=== PATIENT | female | born 1965 | race Caucasian/White ===

== ENCOUNTER 2016-07-25 12:07 | Observation (INO) | payer OTHER ==
[~2016-07-25] VITALS: Ht 172.7 cm; Wt 81.6 kg
[2016-07-25] MEDS ORDERED: NITROGLYCERIN SUBLINGUAL 0.4 MG BOTTLE OF 25. SL PRN (12:45)
[2016-07-25 13:01] LABS: BASO # 0.1 x10^3/uL (0.0-0.2); BASO % 1 % (0-3); EOS % 1 % (0-3); HEMATOCRIT 40.2 % (36.0-47.0); HEMOGLOBIN 13.7 g/dL (12.0-15.5); LYMPH # 1.7 x10^3/uL (1.0-4.8); LYMPH % 27 % (24-48); MEAN CORPUSCULAR HEMOGLOBIN 30 pg (25-35); MEAN CORPUSCULAR HGB CONC 34 g/dL (31-37); MEAN CORPUSCULAR VOLUME 89 fL (79-100); MONO % 7 % (0-9); NEUT % 65 % (31-73); PLATELET COUNT 211 x10^3/uL (140-400); RED BLOOD COUNT 4.52 x10^6/uL (3.50-5.40); RED CELL DISTRIBUTION WIDTH 14.1 % (11.5-14.5); WHITE BLOOD COUNT 6.3 x10^3/uL (4.0-11.0)
[2016-07-25] MEDS: ASPIRIN 81 MG TAB.CHEW PO ONE (13:03)
[2016-07-25] MEDS: IV NORMAL SALINE 1000ML BAG 1,000 ML IV SCH (13:04)
[2016-07-25 13:08] LABS: PROTHROMBIN TIME PATIENT 12.9 SEC (11.7-14.0)
--- NOTE | 2016-07-25 13:11 | EKG ---
[facility] [address] [place] [address] Test Date: 2016-07-25 Test Time: 12:13:19 Pat Name: STEVEN HILLIARD Department: Room: Gender: F Top Icer: : 1965 Requested By: ANICETO SMITH Order Number: [id number] Reading MD: Emy Morales Measurements Intervals [place] Rate: 76 P: 71 PA: 146 QRS: 64 QRSD: 86 T: 41 QT: 344 QTc: 391 Interpretive Statements SINUS RHYTHM LEFT ATRIAL ABNORMALITY ABNORMAL ECG RI6.01 No previous ECG available for comparison Electronically Signed On 07-26-2016 0:33:18 MUCKER COFFERDAM by Emy Morales
[2016-07-25 13:13] LABS: CALCIUM 9.7 mg/dL (8.5-10.1); GFR 58.9; POTASSIUM 3.9 mmol/L (3.5-5.1)
[2016-07-25 13:18] LABS: ALBUMIN 3.8 g/dL (3.4-5.0); DIRECT BILIRUBIN 0.1 mg/dL (0.0-0.2); MAGNESIUM 2.1 mg/dL (1.8-2.4); TOTAL BILIRUBIN 0.6 mg/dL (0.2-1.0); TOTAL PROTEIN 7.3 g/dL (6.4-8.2)
--- NOTE | 2016-07-25 13:19 | RAD ---
Portable chest, 07/25/2016: History: Chest pain The heart size and pulmonary vascularity are normal. No pulmonary infiltrates are seen. There is no evidence of pleural fluid. IMPRESSION: No acute cardiopulmonary abnormality is detected.
[2016-07-25 13:45] LABS: CKMB MASS < 0.5 ng/mL (0.0-3.6); CREATINE KINASE 84 U/L (26-192)
--- NOTE | 2016-07-25 13:50 | PHYS DOC ---
Past Medical History Past Medical History: No Pertinent History Past Surgical History: Tubal ligation Alcohol Use: Occasionally Drug Use: None Adult General Chief Complaint Chief Complaint: CHEST PAIN HPI HPI Patient is a 51 year old female who presents with complaint of chest pain. Patient states that she has had symptoms intermittently over the past 7 days, however she started having worsening symptoms this morning. Patient states that the pain is substernal and radiates towards the right side of her neck. Patient has had associated nausea with her symptoms. Patient currently rates her pain as 5 out of 10. Patient has not taken any medications to help with symptoms. Patient denies any significant past medical history however she does have significant history for myocardial infarction in her maternal side of the family. Review of Systems Review of Systems Constitutional: Denies fever or chills [] Eyes: Denies change in visual acuity, redness, or eye pain [] HENT: Denies nasal congestion or sore throat [] Respiratory: Denies cough or shortness of breath [] Cardiovascular: Chest pain [] GI: Nausea, denies abdominal pain vomiting, bloody stools or diarrhea [] : Denies dysuria or hematuria [] Musculoskeletal: Denies back pain or joint pain [] Integument: Denies rash or skin lesions [] Neurologic: Denies headache, focal weakness or sensory changes [] Endocrine: Denies polyuria or polydipsia [] Current Medications Current Medications Current Medications Medications (Trade) Dose Ordered Sig/[facility] Start Time Stop Time Status Last Admin Dose Admin Acetaminophen (Tylenol) 650 mg 1X ONCE 07/25/16 14:15 07/25/16 14:16 DC 07/25/16 13:55 650 MG Aspirin (Children'S Aspirin) 324 mg 1X ONCE 07/25/16 13:15 07/25/16 13:16 DC 07/25/16 13:03 324 MG Aspirin (Ecotrin) 81 mg [id number] 07/26/16 08:00 Multi-Ingredient Mouthwash/Gargle (Gi Cocktail Single Dose) 15 ml 1X ONCE 07/25/16 16:00 07/25/16 16:01 DC 07/25/16 16:05 15 ML Nitroglycerin 0.4 mg 0.4 mg PRN Q5MIN PRN 07/25/16 12:45 07/26/16 12:44 Ondansetron HCl (Zofran) 4 mg 1X ONCE 07/25/16 14:15 07/25/16 14:16 DC 07/25/16 13:56 4 MG Pantoprazole Sodium (Protonix) 40 mg DAILYAC 07/25/16 16:00 07/25/16 15:30 40 MG Sodium Chloride (Iv Sodium Chloride 0.9% 1000ml Bag) 1,000 ml @ 1,000 mls/hr Q1H 07/25/16 12:40 07/25/16 13:39 DC 07/25/16 13:04 1,000 MLS/HR Allergies Allergies Allergies Coded Allergies Type Severity Reaction Last Updated Verified No Known Drug Allergies 07/25/16 No Physical Exam Physical Exam Constitutional: Well developed, well nourished, no acute distress, non-toxic appearance. [] HENT: Normocephalic, atraumatic, bilateral external ears normal, oropharynx moist, no oral exudates, nose normal. [] Eyes: PERRLA, EOMI, conjunctiva normal, no discharge. [] Neck: Normal range of motion, no tenderness, supple, no stridor. [] Cardiovascular:Heart rate regular rhythm, no murmur [] Lungs & Thorax: Bilateral breath sounds clear to auscultation [] Abdomen: Bowel sounds normal, soft, no tenderness, no masses, no pulsatile masses. [] Skin: Warm, dry, no erythema, no rash. [] Back: No tenderness, no CVA tenderness. [] Extremities: No tenderness, no cyanosis, no clubbing, ROM intact, no edema. [] Neurologic: Alert and oriented X 3, normal motor function, normal sensory function, no focal deficits noted. [] Current Patient Data Vital Signs Vital Signs Date Time Temp Pulse Resp B/P Pulse Ox O2 Delivery O2 Flow Rate FiO2 07/25/16 16:00 70 98 Room Air 07/25/16 15:30 118/71 07/25/16 12:07 98.5 14 98.5 Lab Values Laboratory Tests Test 07/25/16 12:18 07/25/16 14:45 White Blood Count 6.3x10^3/uL (4.0-11.0) Red Blood Count 4.52x10^6/uL (3.50-5.40) Hemoglobin 13.7g/dL (12.0-15.5) Hematocrit 40.2% (36.0-47.0) Mean Corpuscular Volume 89fL (79-100) Mean Corpuscular Hemoglobin 30pg (25-35) Mean Corpuscular Hemoglobin Concent 34g/dL (31-37) Red Cell Distribution Width 14.1% (11.5-14.5) Platelet Count 211x10^3/uL (140-400) Neutrophils (%) (Auto) 65% (31-73) Lymphocytes (%) (Auto) 27% (24-48) Monocytes (%) (Auto) 7% (0-9) Eosinophils (%) (Auto) 1% (0-3) Basophils (%) (Auto) 1% (0-3) Neutrophils # (Auto) 4.1x10^3uL (1.8-7.7) Lymphocytes # (Auto) 1.7x10^3/uL (1.0-4.8) Monocytes # (Auto) 0.4x10^3/uL (0.0-1.1) Eosinophils # (Auto) 0.0x10^3/uL (0.0-0.7) Basophils # (Auto) 0.1x10^3/uL (0.0-0.2) Prothrombin Time 12.9SEC (11.7-14.0) Prothrombin Time INR 1.0 (0.8-1.1) Sodium Level 143mmol/L (136-145) Potassium Level 3.9mmol/L (3.5-5.1) Chloride Level 104mmol/L (98-107) Carbon Dioxide Level 28mmol/L (21-32) Anion Gap 11 (6-14) Blood Urea Nitrogen 22mg/dL (7-20) H Creatinine 1.0mg/dL (0.6-1.0) Estimated GFR (Cockcroft-Gault) 58.9 Glucose Level 96mg/dL (70-99) Calcium Level 9.7mg/dL (8.5-10.1) Magnesium Level 2.1mg/dL (1.8-2.4) Total Bilirubin 0.6mg/dL (0.2-1.0) Direct Bilirubin 0.1mg/dL (0.0-0.2) Aspartate Amino Transferase (AST) 13U/L (15-37) L Alanine Aminotransferase (ALT) 20U/L (14-59) Alkaline Phosphatase 75U/L (46-116) Creatine Kinase 84U/L (26-192) Creatine Kinase MB (Mass) < 0.5ng/mL (0.0-3.6) Creatine Kinase MB Relative Index % (0-4) Troponin I Quantitative < 0.017ng/mL (0.000-0.055) VX-Xzc-[id number]-Type Natriuretic Peptide 36pg/mL (0-124) Total Protein 7.3g/dL (6.4-8.2) Albumin 3.8g/dL (3.4-5.0) Lipase 158U/L (73-393) Thyroid Stimulating Hormone (TSH) 4.498uIU/mL (0.358-3.74) H Urine Collection Type Void Urine Color Yellow Urine Clarity Clear Urine pH 6.5 Urine Specific [place] 1.020 Urine Protein Negativemg/dL (NEG-TRACE) Urine Glucose (UA) Negativemg/dL (NEG) Urine Ketones (Stick) Tracemg/dL (NEG) Urine Blood Negative (NEG) Urine Nitrite Negative (NEG) Urine Bilirubin Negative (NEG) Urine Urobilinogen Dipstick 0.2mg/dL (0.2 mg/dL) Urine Leukocyte Esterase Trace (NEG) Urine RBC 0/HPF (0-2) Urine WBC 1-4/HPF (0-4) Urine Squamous Epithelial Cells Mod/LPF Urine Bacteria Few/HPF (0-FEW) Urine Mucus Marked/LPF Urine Test Negative (NEG) Laboratory Tests 07/25/16 12:18 Laboratory Tests 07/25/16 12:18 EKG EKG Interpreted by me: Heart rate 76, sinus rhythm, normal intervals, normal axis, no acute ST/T-wave abnormalities present [] Radiology/Procedures Radiology/Procedures [facility] [address] [place], [place] [id number] IMAGING REPORT Signed PATIENT: STEVEN HILLIARD ACCOUNT: [id number] : 1965 LOCATION: ER AGE: 51 SEX: F EXAM STATUS: REG ER ORD. PHYSICIAN: ANICETO SMITH MD REASON: chest pain since last night PROCEDURE: PORTABLE CHEST 1V Portable chest, 07/25/2016: History: Chest pain The heart size and pulmonary vascularity are normal. No pulmonary infiltrates are seen. There is no evidence of pleural fluid. IMPRESSION: No acute cardiopulmonary abnormality is detected. DICTATED and SIGNED BY: MARSHALL LEWIS MD DATE: 07/25/16 1316 CC: ANICETO SMITH MD; NIKOS NEAL APRN ~ [] Course & Med Decision Making Course & Med Decision Making Pertinent Labs and Imaging studies reviewed. (See chart for details) The patient's initial workup showed negative cardiac enzymes, a mildly elevated TSH, and no other remarkable findings. The patient continues to have persistent symptoms in the emergency department of chest pain at this time after treatment with aspirin and nitroglycerin. I consulted the cardiology service and patient was evaluated in the emergency department by Dr. Mcgee of cardiology. The patient will be admitted for monitoring overnight and will have an echocardiogram and stress test completed to rule out acute coronary syndrome. Patient was admitted to Dr. Farley. Dragon Disclaimer Dragon Disclaimer This electronic medical record was generated, in whole or in part, using a voice recognition dictation system. Departure Departure Impression: Primary Impression: Chest pain Additional Impressions: Elevated TSH Family history of myocardial infarction Disposition: ADMITTED INPATIENT Admitting Physician: Other Condition: STABLE Referrals: NIKOS NEAL APRN (PCP) Problem Qualifiers Primary Impression: Chest pain Chest pain type: unspecified Qualified Code: R07.9 - Chest pain, unspecified ANICETO SMITH MD Jul 25, 2016 13:50
[2016-07-25] MEDS: ACETAMINOPHEN 325 MG TABLET. PO ONE (13:55)
[2016-07-25] MEDS: ONDANSETRON PF 4 MG/2 ML VIAL. IV ONE (13:56)
--- NOTE | 2016-07-25 14:36 | PDOC2 ---
MARQUIS HERNANDEZ MUSICAL INSTRUMENT MAKER 07/25/16 1436: CARDIAC CONSULT DATE OF CONSULT Date of Consult DATE: 07/25/16 TIME: 14:23 REASON FOR CONSULT Reason for Consult: Chest pain REFERRING PHYSICIAN Referring Physician: Mikael SOURCE Source: Chart review, Patient HISTORY OF PRESENT ILLNESS HISTORY OF PRESENT ILLNESS This is a pleasant 51 yo female admitted for complains of chest pain. Reports that she has been having frequent sensation indigestion lately. Also has been having intermittent chest pressure. Yesterday evening around 6 PM she started having retrosternal pressure which was associated with nausea, jaw pain , and mild SOA. This lingered on all night but tolerable enough that she was able to go to sleep. Pealed at pain rate of 5 in 0-10 scale. She woke up today and her indigestion which worsen to more nausea remained and again was having chest pressure. She took tums and this is the only treatment she tried without resolution. She had zofran in ED which again decreased her nausea but not completely. Also lately she has been having palpitations occurring intermittently sometimes throughout the day TIW and at times she would feel dizzy. Denies any prior CAR, cardiac disease, VTE, PUD. She does not take any medications. Denies any falls, injuries, recent heavy lifting, constipation, no recent infection or chronic coughing nor respiratory infections. No routine use of NSAIDs/excessive caffeinated beverages/nor ETOH. She also has been feeling fatigued lately. PAST MEDICAL HISTORY Past Medical History Subclinical hypothyroidism treated with synthroid in the past but currently not on any replacement. No further pertinent history PAST SURGICAL HISTORY Past Surgical History: Tubal Ligation FAMILY HISTORY Family History: Coronary Artery Disease (Grandmother with SCD in her 40s), Other (AFIB mother and brother) CURRENT MEDICATIONS CURRENT MEDICATIONS Current Medications Medications (Trade) Dose Ordered Sig/Stephanie Route PRN Reason Start Time Stop Time Status Last Admin Dose Admin Aspirin 324 mg 324 mg 1X ONCE PO 07/25/16 13:15 07/25/16 13:16 DC 07/25/16 13:03 Sodium Chloride (Iv Sodium Chloride 0.9% 1000ml Bag) 1,000 ml @ 1,000 mls/hr Q1H IV 07/25/16 12:40 07/25/16 13:39 DC 07/25/16 13:04 Ondansetron HCl (Zofran) 4 mg 1X ONCE IV 07/25/16 14:15 07/25/16 14:16 DC 07/25/16 13:56 Acetaminophen (Tylenol) 650 mg 1X ONCE PO 07/25/16 14:15 07/25/16 14:16 DC 07/25/16 13:55 ALLERGIES ALLERGIES: Coded Allergies: No Known Drug Allergies (Unverified , 07/25/16) ROS Review of System 14 point ROS evaluated with pertinent positives noted per HPI PHYSICAL EXAM General: Alert, Oriented X3, Cooperative, No acute distress HEENT: Atraumatic, Mucous membr. moist/pink Lungs: Clear to auscultation, Normal air movement Heart: Regular rate, Normal S1, Normal S2, No murmurs Abdomen: Soft, No tenderness Extremities: No cyanosis, No edema Skin: No breakdown, No significant lesion Neuro: Normal speech, Sensation intact Psych/Mental Status: Mental status NL, Mood NL MUSCULOSKELETAL: Full range of motion without pain VITALS VITALS Vital Signs Date Time Temp Pulse Resp B/P Pulse Ox O2 Delivery O2 Flow Rate FiO2 07/25/16 13:30 70 115/70 95 Room Air 07/25/16 12:07 98.5 14 98.5 LABS Lab: Laboratory Tests Test 07/25/16 12:18 White Blood Count 6.3x10^3/uL (4.0-11.0) Red Blood Count 4.52x10^6/uL (3.50-5.40) Hemoglobin 13.7g/dL (12.0-15.5) Hematocrit 40.2% (36.0-47.0) Mean Corpuscular Volume 89fL (79-100) Mean Corpuscular Hemoglobin 30pg (25-35) Mean Corpuscular Hemoglobin Concent 34g/dL (31-37) Red Cell Distribution Width 14.1% (11.5-14.5) Platelet Count 211x10^3/uL (140-400) Neutrophils (%) (Auto) 65% (31-73) Lymphocytes (%) (Auto) 27% (24-48) Monocytes (%) (Auto) 7% (0-9) Eosinophils (%) (Auto) 1% (0-3) Basophils (%) (Auto) 1% (0-3) Neutrophils # (Auto) 4.1x10^3uL (1.8-7.7) Lymphocytes # (Auto) 1.7x10^3/uL (1.0-4.8) Monocytes # (Auto) 0.4x10^3/uL (0.0-1.1) Eosinophils # (Auto) 0.0x10^3/uL (0.0-0.7) Basophils # (Auto) 0.1x10^3/uL (0.0-0.2) Prothrombin Time 12.9SEC (11.7-14.0) Prothromb Time International Ratio 1.0 (0.8-1.1) Sodium Level 143mmol/L (136-145) Potassium Level 3.9mmol/L (3.5-5.1) Chloride Level 104mmol/L (98-107) Carbon Dioxide Level 28mmol/L (21-32) Anion Gap 11 (6-14) Blood Urea Nitrogen 22mg/dL (7-20) Creatinine 1.0mg/dL (0.6-1.0) Estimated GFR (Cockcroft-Gault) 58.9 Glucose Level 96mg/dL (70-99) Calcium Level 9.7mg/dL (8.5-10.1) Magnesium Level 2.1mg/dL (1.8-2.4) Total Bilirubin 0.6mg/dL (0.2-1.0) Direct Bilirubin 0.1mg/dL (0.0-0.2) Aspartate Amino Transf (AST/SGOT) 13U/L (15-37) Alanine Aminotransferase (ALT/SGPT) 20U/L (14-59) Alkaline Phosphatase 75U/L (46-116) Creatine Kinase 84U/L (26-192) Creatine Kinase MB (Mass) < 0.5ng/mL (0.0-3.6) Creatine Kinase MB Relative Index % (0-4) Troponin I Quantitative < 0.017ng/mL (0.000-0.055) WL-Mkj-J-Type Natriuretic Peptide 36pg/mL (0-124) Total Protein 7.3g/dL (6.4-8.2) Albumin 3.8g/dL (3.4-5.0) Lipase 158U/L (73-393) Thyroid Stimulating Hormone (TSH) 4.498uIU/mL (0.358-3.74) ASSESSMENT/PLAN ASSESSMENT/PLAN 1. Chest pain: with typical features. Initial troponin normal. EKG SR with mild T wave inversions to septal leads and notable for possible LAE. 2. Palpitations: occurring TIW sometimes intermittent throughout the day with associated dizziness. 3. Subclinical hypothyroidism: defer to PCP 4. Family hx of AFIB (brother and mother) and Premature SCD/PA (grandmother) Plan 1. Discussed plan with pt. TTE today, MPI tomorrow. 2. Lipid panel, continue to trend troponin 3. ECASA, PPI 4. Will consider for event monitor. Problems: DANYELLE MAURER MD 07/25/16 1606: CARDIAC CONSULT ALLERGIES ALLERGIES: Coded Allergies: No Known Drug Allergies (Unverified , 07/25/16) ASSESSMENT/PLAN ASSESSMENT/PLAN Pt. seen and examined Agree with above ROUTE DELIVERY SERVICE DRIVER note. 51 y.o F with atypical chest pain. No clear risk factors present Initial tropon is negative. On exam she has normal heart sounds +GERD symptoms. Will tentatively plan for GI cocktail now, then repeat troponin, if normal could then do outpt stress. Otherwise, plan for inpt stress tmrw. Discussed with patient. Problems: MARQUIS HERNANDEZ APRN Jul 25, 2016 14:36 DANYELLE MAURER MD Jul 25, 2016 16:06
[2016-07-25 14:58] LABS: NEG OBC UR NEG; POS OBC UR POS
[2016-07-25 14:59] LABS: BILIRUBIN,URINE NEGATIVE (NEG); GLUCOSE,URINE NEGATIVE (NEG); NITRITE,URINE NEGATIVE (NEG); PH,URINE 6.5; PROTEIN,URINE NEGATIVE (NEG-TRACE); UROBILINOGEN,URINE 0.2 mg/dL (0.2 mg/dL)
[2016-07-25 15:13] LABS: BACTERIA,URINE FEW /HPF (0-FEW); RBC,URINE 0 /HPF (0-2); SQUAMOUS EPITHELIAL CELL,UR MOD /LPF
[2016-07-25] MEDS: PANTOPRAZOLE 40 MG TABLET. PO SCH (15:30)
[2016-07-25] MEDS: LIDO:MAALOX:DONNATAL 1:1:1 15 ML SINGLE DOSE SWSW ONE (16:05)
--- NOTE | 2016-07-25 16:43 | CARD ---
APPROVED REPORT EXAM: Two-dimensional and M-mode echocardiogram with Doppler and color Doppler. Other Information Quality : Average Rhythm : NSR INDICATION Chest Pain 2D DIMENSIONS RVDd2.0 (2.9-3.5cm)Left Atrium(2D)2.6 (1.6-4.0cm) IVSd0.8 (0.7-1.1cm)Aortic Root(2D)2.7 (2.0-3.7cm) LVDd5.4 (3.9-5.9cm)LVOT Diameter2.0 (1.8-2.4cm) PWd0.8 (0.7-1.1cm)LVDs2.9 (2.5-4.0cm) FS (%) 32.2 %SV106.5 ml LVEF(%)64.1 (>50%) Aortic Valve AoV Peak Maximino.115.0cm/sAoV VTI26.2cm AO Peak GR.5.3mmHgLVOT VTI 22.30cm AO Mean GR.3mmHgAVA (VTI)2.73cm2 Mitral Valve MV E Axfmuoio55.3cm/sMV E Peak Gr.2mmHg MV DECEL [id number] A Eetjufyl65.7cm/s MV E Mean Gr.1mmHgMV YHI68sj E/A Ratio1.3MV A [id number] MVA (PHT)3.06cm2 TDI Lateral E' P. V13.12cm/sMedial E' P. V13.12cm/s E/Lateral E'4.7E/Medial E'4.7 Tricuspid Valve TR P. Qjigzjlx804bq/sRAP [id number] TR Peak Gr.38daCsRTRW07wvFv LEFT VENTRICLE The left ventricle is normal size. There is normal left ventricular wall thickness. Left ventricle sy stolic function is normal. The Ejection Fraction is 60-65%. There is normal LV segmental wall motion. The left ventricular diastolic function and filling is normal for age. RIGHT VENTRICLE The right ventricle is normal size. The right ventricular systolic function is normal. ATRIA The left atrium size is normal. The right atrium size is normal. The interatrial septum is intact wit h no evidence for an atrial septal defect or patent foramen ovale as noted on 2-D or Doppler imaging. AORTIC VALVE The aortic valve is normal in structure and function. The aortic valve is trileaflet. Doppler and Col or Flow revealed no significant aortic regurgitation. There is no significant aortic valvular stenosi s. MITRAL VALVE The mitral valve leaflets are thickened. There is no mitral valve stenosis. Doppler and Color Flow re vealed mild mitral regurgitation. TRICUSPID VALVE The tricuspid valve is normal in structure and function. Doppler and Color Flow revealed trace tricus pid regurgitation. The PA pressure was estimated at 18 mmHg. There is no tricuspid valve stenosis. PULMONIC VALVE The pulmonic valve is not well visualized. Doppler and Color Flow revealed trace to mild pulmonic redd vular regurgitation. There is no pulmonic valvular stenosis. GREAT VESSELS The aortic root is normal in size. The IVC is normal in size and collapses >50% with inspiration. PERICARDIAL EFFUSION There is no evidence of significant pericardial effusion. Critical Notification Critical Value: No <Conclusion> Left ventricle systolic function is normal. The Ejection Fraction is 60-65%. There is normal LV segmental wall motion. Mild mitral regurgitation. Trace tricuspid regurgitation. The PA pressure was estimated at 18 mmHg. There is no evidence of significant pericardial effusion.
[2016-07-25 17:15] VITALS: BP 124/76
--- NOTE | 2016-07-25 18:54 | HP ---
ADMIT DATE: 07/25/2016 CHIEF COMPLAINT: Chest pain. HISTORY OF PRESENT ILLNESS: The patient is a 51-year-old woman with subclinical hypothyroidism as only medical issue, who had noted substernal chest pain, dull, achy, radiating to her right neck and to her right shoulder blade. She relates the pain started essentially 6:00 p.m. last night after eating some fried food. This was accompanied with nausea as well as some mild shortness of breath. This felt different than GERD which she had in the distant past. Symptoms mildly abated and she was able to sleep, but never completely went away. Woke up this morning once again with nausea as well as some chest pressure for which she took Tums without any relief in her symptoms. Zofran in the ED once again helped with some nausea, but did not relieve her other symptoms and GI cocktail actually made her symptoms worse. She denies using regular NSAIDs, excessive caffeine or alcohol in the recent past. Denies any personal history of heart disease, but does have a positive family history. PAST MEDICAL HISTORY: 1. Hypothyroidism. 2. GERD. FAMILY HISTORY: CAD with grandmother in her 40s, atrial fibrillation in mother and brother. SOCIAL HISTORY: She is , living with her family, works as a nurse at [employer]. No toxic habits. ALLERGIES: No known drug allergies. MEDICATIONS: None at home. REVIEW OF SYSTEMS: Positive as per HPI. Rest of organ system review is completely negative. PHYSICAL EXAMINATION: VITAL SIGNS: From today show a blood pressure of 124/76, heart rate of 69, respiratory rate 16, temperature of 99.9. GENERAL: This is a well-nourished 51-year-old woman, alert and oriented, in no acute distress. HEENT: Shows no scleral icterus. NECK: Supple, without any lymphadenopathy. LUNGS: Clear. CARDIOVASCULAR: Regular rate and rhythm. ABDOMEN: Positive bowel sounds, soft, no tenderness to palpation including right upper quadrant. Liver edge not palpable. EXTREMITIES: Show no edema. LABORATORY DATA: CBC from today shows a WBC of 6.3, hemoglobin 13.7, platelets of 211. Chemistries with BUN and creatinine of 22 and 1.0. Normal electrolytes. LFTs within normal including total bilirubin of 0.6. CK and troponin are within normal limits. Lipase normal. TSH at 4.498. Urine negative for infection. RADIOGRAPHIC STUDIES: Chest x-ray with no acute cardiopulmonary abnormality. ASSESSMENT AND PLAN: The patient is a 51-year-old woman with chest pain that is not responding to Tums or other medications. Although not completely atypical, cardiac etiology should be ruled out ARIELA. Workup is in progress. Stress test is planned for tomorrow. The association with significant nausea being the main feature, makes the suspicion for GI etiology including gallbladder disease a high possibility. As her symptoms seem to be potentially associated with some fried/greasy foods, we will obtain at least an ultrasound of the right upper quadrant to elucidate. For her nausea, we will try Compazine as she did not respond terribly well to the Zofran in the Emergency Room. A GI cocktail actually made things worse. For prophylaxis, we will start a proton pump inhibitor. Hold off on Lovenox for now. Would anticipate discharge tomorrow. ELISE [place] MD DR: BRIAN/nts JOB#: [id number] / [id number] NIKOS Strong APRN MTDD
[2016-07-25 19:00] VITALS: BP 116/68
[2016-07-25] MEDS ORDERED: ASA/APAP/CAFFEINE 250/250/65MG TABLET. PO PRN (19:30)
[2016-07-25] MEDS: PROCHLORPERAZINE 10 MG/2 ML VIAL. IV PRN (20:00)
[2016-07-25] MEDS: ACETAMINOPHEN 325 MG TABLET. PO PRN (20:00)
[2016-07-26] MEDS ORDERED: LEVOTHYROXINE 25 MCG TABLET. PO SCH (07:00)
[2016-07-26] MEDS ORDERED: ASPIRIN ENTERIC COATED 81 MG TABLET.DR. PO SCH (08:00)
--- NOTE | 2016-07-26 08:44 | RAD ---
Right upper quadrant abdominal ultrasound, 07/25/2016: History: Right upper quadrant pain and nausea The gallbladder is within normal limits in size. There is no sonographic evidence of cholelithiasis. The gallbladder wall is not thickened. No bile duct dilatation is seen. The visualized portions of the liver, pancreas and right kidney are unremarkable. IMPRESSION: No significant abnormality is detected.
== END 2016-07-25 21:20 | disposition left against medical advice (07) ==
LOC: ER 12:07 → 5 NORTH 15:49
PROVIDERS: ADMIT Internal Medicine Hematology & Oncology; ATTEND Internal Medicine Hematology & Oncology
DX: R07.89 Other chest pain (principal); K21.9 Gastro-esophageal reflux disease without esophagitis; E03.9 Hypothyroidism, unspecified; I25.2 Old myocardial infarction; I48.91 Unspecified atrial fibrillation; R42 Dizziness and giddiness; R06.02 Shortness of breath; R11.0 Nausea
CPT/HCPCS: 36415; 71010; 76705; 80048; 80076; 81001; 81025; 82553; 83690; 83735; 83880; 84443; 84484; 85027; 85610; 87086; 93005; 93306; 96361; 96374; 96375; 99285; G0378; G0379; J0780; J2405; J7030

== ENCOUNTER → 2016-08-10 | Outpatient (CLI) | payer OTHER ==
[2016-07-25 19:00] VITALS: BP 116/68
== END | disposition home or self-care (01) ==
LOC: NM 08:59
PROVIDERS: ATTEND Internal Medicine Cardiovascular Disease
DX: R07.9 Chest pain, unspecified (principal)
CPT/HCPCS: 78452; 93017; 96374; 96376; A9500

== ENCOUNTER → 2017-06-29 | Outpatient (CLI) | payer OTHER ==
[2017-06-29 12:45] LABS: FREE T4 1.07 ng/dL (0.76-1.46)
== END | disposition home or self-care (01) ==
LOC: LAB 11:45
PROVIDERS: ATTEND Obstetrics & Gynecology
DX: E03.9 Hypothyroidism, unspecified (principal)
CPT/HCPCS: 36415; 82306; 82607; 82627; 84439; 84443; 84480

== ENCOUNTER 2017-08-21 20:28 | Emergency (ER) | payer SELFPAY, OTHER ==
[2017-08-21] MEDS ORDERED: ONDANSETRON ODT 4 MG TAB.RAPDIS. ×2 (21:17)
[2017-08-21] MEDS: ONDANSETRON ODT 4 MG TAB.RAPDIS. PO ×2 (21:18)
== END 2017-08-21 21:20 | disposition home or self-care (01) ==
LOC: ER 20:28
DX: B34.9 Viral infection, unspecified (principal); Z98.51 Tubal ligation status
CPT/HCPCS: 99283; Q0162

== ENCOUNTER → 2017-11-16 | Outpatient (CLI) | payer OTHER ==
[2017-11-16 14:19] LABS: FREE T4 1.07 ng/dL (0.76-1.46)
[2017-11-16 19:17] LABS: DHEA SO4 75.4 ug/dL (41.2-243.7); ESTRADIOL LEVEL 5.3 pg/mL (.); FSH 102.7 mIU/mL (.); PROGESTERONE <0.1 ng/mL (.); THYROPEROXIDASE ANTIBODY 10 IU/mL (0-34)
[2017-11-16 22:19] LABS: HEMOGLOBIN A1C 5.3 % (4.8-5.6)
== END | disposition home or self-care (01) ==
LOC: LAB 13:20
DX: E34.9 Endocrine disorder, unspecified (principal); E07.89 Other specified disorders of thyroid; E27.40 Unspecified adrenocortical insufficiency; E72.10 Disorders of sulfur-bearing amino-acid metabolism, unspecified; E55.9 Vitamin D deficiency, unspecified; E78.5 Hyperlipidemia, unspecified; N95.1 Menopausal and female climacteric states
CPT/HCPCS: 36415; 82306; 82533; 82627; 82670; 83001; 83036; 84144; 84402; 84403; 84439; 84443; 84481; 86141; 86376

== ENCOUNTER → 2018-04-17 | Outpatient (CLI) | payer OTHER ==
[2017-08-21 20:46] VITALS: BP 126/72
[~2018-04-17] MED LIST: OSEL75CA PO
[2018-04-17 12:11] LABS: FREE T4 1.04 ng/dL (0.76-1.46); THYROID STIM HORMONE (TSH) 1.881 uIU/mL (0.358-3.74)
[2018-04-17 21:10] LABS: ESTRADIOL LEVEL 42.1 pg/mL (.); FSH 50.1 mIU/mL (.); PROGESTERONE 1.6 ng/mL (.); TESTOSTERONE TOTAL 90 ng/dL (3-41)
== END | disposition home or self-care (01) ==
LOC: LAB 11:07
DX: N95.1 Menopausal and female climacteric states (principal); E34.9 Endocrine disorder, unspecified; E07.89 Other specified disorders of thyroid; E27.40 Unspecified adrenocortical insufficiency; E72.10 Disorders of sulfur-bearing amino-acid metabolism, unspecified; E78.5 Hyperlipidemia, unspecified; E55.9 Vitamin D deficiency, unspecified
CPT/HCPCS: 36415; 82306; 82670; 83001; 84144; 84403; 84439; 84443; 84481

== ENCOUNTER → 2018-05-14 | Outpatient (CLI) | payer OTHER ==
[2017-08-21 20:46] VITALS: BP 126/72
--- NOTE | 2018-05-14 15:43 | RAD ---
DATE: 05/14/2018 EXAM: MAMMO JERMAINE MERARY LADDAT, BREAST BILATERAL HISTORY: Right breast pain COMPARISON: None available This study was interpreted with the benefit of Computerized Aided Detection (CAD). Breast Density: HETERO The breast parenchyma is heterogenously dense, which could reduce sensitivity of mammography. Breast parenchyma level C. FINDINGS: 2-D and 3-D tomosynthesis imaging was performed in CC and MLO projections. No unusual right breast density is seen. There is a smooth 15 x 7 mm oval-shaped density in the inferomedial aspect of the left breast anteriorly as best seen on the CC tomosynthesis images #17. No other focal breast mass is seen. Scattered benign type calcifications are present. No suspicious microcalcifications are evident. Benign-appearing lymph node type densities are present in the axillary regions. Bilateral breast ultrasound, 05/14/2018: The right breast was carefully scanned. No solid mass or unusual fluid collection is seen. A targeted ultrasound exam of the left breast was performed in the lower inner quadrant. At the 7:00 location approximately 2 cm in the nipple there is a hypoechoic nodule. It measures 1.1 cm in length. It is slightly taller than wide. Some of its margins are smooth while others are less clearly defined. There are low level internal echoes. No definite internal color flow is seen. While this may be a fibroadenoma or complicated cyst, malignancy cannot be excluded. IMPRESSION: 1. Left breast nodule as described above. Ultrasound-guided biopsy is suggested for further evaluation. 2. No mammographic or sonographic right breast abnormality is evident. Note: The findings were discussed with the patient the time of the exam and she understands the recommendation for left breast biopsy. She will follow up with the ordering provider. BI-RADS CATEGORY: 4 SUSPICIOUS ABNORMALITY- BIOPSY SHOULD BE CONSIDERED RECOMMENDED FOLLOW-UP: BIO BIOPSY RECOMMENDED PQRS compliance statement: Patient information was entered into a reminder system with a target due date for the next mammogram. Mammography is a sensitive method for finding small breast cancers, but it does not detect them all and is not a substitute for careful clinical examination. A negative mammogram does not negate a clinically suspicious finding and should not result in delay in biopsying a clinically suspicious abnormality. "Our facility is accredited by the [employer] Mammography Program."
== END | disposition home or self-care (01) ==
LOC: MAMMO 13:12
DX: N63.24 Unspecified lump in the left breast, lower inner quadrant (principal); R92.1 Mammographic calcification found on diagnostic imaging of breast
CPT/HCPCS: 76641; 77066; G0279; 77062

== ENCOUNTER → 2018-05-23 | Outpatient (CLI) | payer OTHER ==
[2017-08-21 20:46] VITALS: BP 126/72
[~2018-05-23] MED LIST changes: +LIDOCAINE 1% Multi-Dose 20 ML VIAL. INJ ONE; +LIDOCAINE 2%/EPI 1:100,000 20 ML VIAL. IJ ONE
--- NOTE | 2018-05-27 16:07 | PATHOLOGY ---
[facility] Accession Number: [id number] . 01 Material submitted: . LEFT BREAST . 01 Clinical history: . Left breast mass . 02 Diagnosis: Breast mass, left, core needle biopsy: - Fibroadenoma with focal coarse calcifications. - Florid ductal epithelial hyperplasia, focal. - No evidence of atypia or malignancy. . (Please see comment) QMS/05/24/2018 . 02 Comment: This case has also been reviewed by Dr. Rodolfo Shaffer, who agrees with the diagnosis. . (SKM:joellen; 05/24/2018) . 02 Electronically signed: . Chester Lopez MD, Pathologist NPI- [id number] . 01 Gross description: . Received in formalin labeled "Lizzie Duke, left breast," and additionally labeled on the requisition as "6:00, 2 cm fn,"are multiple needle cores of yellow-gallego fibrofatty tissue measuring 2.1 x 1.9 x 0.3 cm in aggregate dimensions. The tissue submitted in its entirety in cassette A1 through A3. The cold ischemic time is 4 minutes. The total formalin fixation time is approximately 12 hours. (TSD; 05/23/2018) TOB/TOB . 02 Pathologist provided ICD-10: D24.2 . 02 CPT . 362351 Specimen Comment: A courtesy copy of this report has been sent to Specimen Comment: [phone], . Specimen Comment: Report sent to / DR BERNARD Specimen Comment: A duplicate report has been generated due to demographic updates. Performed at: [address], [place], [place] [id number] MD Zeus Barron MD Phone: [phone] Performed at: [address] [id number] MD Patrice Ronquillo MD Phone: [phone]
--- NOTE | 2018-05-29 14:09 | RAD ---
Ultrasound-guided left breast biopsy, 05/23/2018: History: Suspicious nodule Previous imaging demonstrated a suspicious solid nodule at the 6-7:00 location in the left breast. Under local anesthesia, aseptic conditions and sonographic guidance the [facility] biopsy instrument was passed into this lesion via a lateral approach. Multiple 12-gauge vacuum-assisted core samples were obtained and sent to pathology for evaluation. A biopsy marker was then deposited at biopsy site. The biopsy instrument was removed and hemostasis obtained. Two-view postprocedural digital mammograms were then obtained to document position of the biopsy marker. The patient tolerated the procedure well and left the department in good condition. The subsequent pathology report indicated the presence of a benign fibroadenoma. This is considered to be concordant finding.
== END | disposition home or self-care (01) ==
LOC: US 11:07
PROVIDERS: ATTEND Obstetrics & Gynecology
DX: D24.2 Benign neoplasm of left breast (principal); N60.92 Unspecified benign mammary dysplasia of left breast; I10 Essential (primary) hypertension; Z79.899 Other long term (current) drug therapy
CPT/HCPCS: 19083; 77065; 88305; C1713; 19081; 76942

== ENCOUNTER → 2020-09-22 | Outpatient (CLI) | payer OTHER ==
[2017-08-21 20:46] VITALS: BP 126/72
[~2020-09-22] MED LIST changes: -LIDOCAINE 1% Multi-Dose 20 ML VIAL. INJ ONE; -LIDOCAINE 2%/EPI 1:100,000 20 ML VIAL. IJ ONE
--- NOTE | 2020-09-22 13:11 | RAD ---
EXAMINATION: MRI LEFT KNEE WITHOUT IV CONTRAST CLINICAL HISTORY: Left knee pain concerning for acute medial meniscus tear and patellar subluxation TECHNIQUE: Multiplanar multisequential images obtained through the knee without intravenous contrast. COMPARISON: Left knee radiographs 09/13/2020 FINDINGS: MENISCI: Medial Meniscus: Intact. Lateral Meniscus: Intact. LIGAMENTS: ACL: Intact PCL: Intact MCL: Intact LCL Complex: Intact CARTILAGE: Medial Femoral Condyle: Normal Medial Tibial Plateau: Normal Lateral Femoral Condyle: Normal Lateral Tibial Plateau: Cartilage signal abnormality Patella: Moderate sized area(s) of predominantly high grade (greater than 50% thickness) cartilage lo ss and or fissuring with smaller area(s) of full thickness cartilage loss and or fissuring with subch ondral marrow reactive/cystic changes predominantly in the lateral facet Trochlea: Normal TENDONS: Distal quadriceps and patellar tendons intact. Popliteus tendon intact. BONES AND MARROW: No evidence of acute fracture or suspicious marrow replacing process. MUSCLES: Muscle bulk and signal intensity within normal limits. JOINT FLUID AND SYNOVIUM: No joint effusion. No synovitis. No Virgen's cyst. IMPRESSION: Mild to moderate full-thickness chondral wear in the patella. No sequelae of patellar dislocation vis ualized. No meniscus tear. Electronically signed by: Jn Deleon DO (09/22/2020 1:09 PM) [id number]
== END ==
LOC: MRI 11:19
PROVIDERS: ATTEND Physician Assistant
DX: S83.242A Other tear of medial meniscus, current injury, left knee, initial encounter (principal); S83.002A Unspecified subluxation of left patella, initial encounter; X58.XXXA Exposure to other specified factors, initial encounter; Y93.89 Activity, other specified; Y92.89 Other specified places as the place of occurrence of the external cause; Y99.8 Other external cause status
CPT/HCPCS: 73721

== ENCOUNTER → 2021-09-23 | Day surgery (SDC) | payer OTHER ==
[~2021-09-23] VITALS: Ht 170.2 cm; Wt 88.6 kg
[~2021-09-23] MED LIST changes: +BUPR150T8 PO; +CHOL500050 PO; +GABA600T7 PO; +HYDROmorphone 2 MG/ML INJ. IVP PRN; +IV RINGERS,LACTATED 1000ML 1,000 ML IV SCH; +LIDOCAINE 2% PF 5 ML VIAL. ONE; +MORPHINE SULFATE 2 MG/ML INJ. IVP PRN; +PROCHLORPERAZINE 10 MG/2 ML VIAL. IVP PRN; +PROPOFOL 10 MG/ML (20ML) VIAL. IV ONE; +TRAZ-118 PO; +fentaNYL PF VIAL 100 MCG/2 ML VIAL IVP PRN
[2021-09-23 08:29] VITALS: BP 140/60
[2021-09-23 09:42] VITALS: BP 114/68
== END | disposition home or self-care (01) ==
LOC: ENDOS 08:08
PROVIDERS: ATTEND Internal Medicine Gastroenterology
DX: Z12.11 Encounter for screening for malignant neoplasm of colon (principal); R10.13 Epigastric pain; R13.10 Dysphagia, unspecified; K64.0 First degree hemorrhoids; K29.60 Other gastritis without bleeding; K31.89 Other diseases of stomach and duodenum; K63.89 Other specified diseases of intestine; K21.9 Gastro-esophageal reflux disease without esophagitis; E03.9 Hypothyroidism, unspecified; F41.9 Anxiety disorder, unspecified; Z72.89 Other problems related to lifestyle; Z79.899 Other long term (current) drug therapy; Z98.890 Other specified postprocedural states
CPT/HCPCS: 43235; 45378; J2704